=== PATIENT | female | born 1975 | race Caucasian/White ===

== ENCOUNTER 2018-06-22 17:23 | Emergency (ER) | payer OTHER ==
[~2018-06-22] VITALS: Ht 175.3 cm; Wt 134.0 kg
[2018-06-22 17:31] VITALS: BP 120/82; Ht 175.3 cm; Wt 134.0 kg
== END 2018-06-22 19:41 | disposition left against medical advice (07) ==
LOC: ED 17:23
DX: Z53.21 Procedure and treatment not carried out due to patient leaving prior to being seen by health care provider (principal)